=== PATIENT | female | born 1995 | race African-American/Black ===

== ENCOUNTER 2019-12-14 01:27 | Emergency (ER) | payer OTHER ==
[~2019-12-14] VITALS: Ht 167.6 cm; Wt 73.0 kg
[2019-12-14] MEDS ORDERED: ONDANSETRON 2MG/ML, 2ML IVPush ONE (01:30)
[2019-12-14] MEDS ORDERED: SODIUM CHLORIDE 0.9% 1,000ML IVBOLUS ONE (01:30)
--- NOTE | 2019-12-14 01:44 | NUR ---
pt resting on gurney, monitors applied, siderails up x2, call light within reach
[2019-12-14 01:46] LABS: BASOPHILS # (AUTO) 0.03 x10^3/uL (0-0.1); BASOPHILS % (AUTO) 1 % (0-1); EOSINOPHILS # (AUTO) 0.03 x10^3/uL (0-0.4); EOSINOPHILS % (AUTO) 1 % (1-7); LYMPHOCYTES # (AUTO) 1.75 x10^3/uL (1-3.4); LYMPHOCYTES % (AUTO) 27 % (22-44); MD NO; MEAN CORPUSCULAR HEMOGLOBIN 29.2 pg (27.0-34.8); MEAN CORPUSCULAR VOLUME 91.1 fL (80-100); MEAN PLATELET VOLUME 8.7 fL (7.4-10.4); MONOCYTES # (AUTO) 0.35 x10^3/uL (0.2-0.8); MONOCYTES % (AUTO) 5 % (2-9); NEUTROPHILS # (AUTO) 4.27 x10^3/uL (1.8-6.8); NEUTROPHILS % (AUTO) 66 % (42-75); PLATELET COUNT 215 x10^3/uL (130-400); RED BLOOD COUNT 4.72 x10^6/uL (3.82-5.3); RED CELL DISTRIBUTION WIDTH 13.2 % (9.6-15.2)
[2019-12-14 01:56] LABS: ANION GAP 6 mmol/L (5-15); CALCIUM 9.2 mg/dL (8.5-10.1); CHLORIDE 111 mmol/L (98-107); CREATININE 1.11 mg/dL (0.55-1.02)
[2019-12-14] MEDS ORDERED: ONDANSETRON 2MG/ML, 2ML ONE (01:57)
[2019-12-14 01:59] LABS: SALICYLATE LEVEL < 1.7 mg/dL (2.8-20.0)
--- NOTE | 2019-12-14 01:59 | NUR ---
PT MEDICATED PER MAR
--- NOTE | 2019-12-14 03:30 | NUR ---
PT RESTING ON GURNEY WITH EYES CLOSED, NAD, RESPIRATIONS EVEN AND UNLABORED, CALL LIGHT WITHIN REACH. WILL CONTINUE TO MONITOR
[2019-12-14 04:44] VITALS: BP 103/63
--- NOTE | 2019-12-14 04:45 | NUR ---
pt opens eyes to repeated verbal response, when this rn asked pt question, pt unable to answer and quickly closes eyes again and falls back to sleep. call light within reach, will continue to monitor
--- NOTE | 2019-12-14 05:57 | NUR ---
erp at pt's bedsdie for recheck
--- NOTE | 2019-12-14 06:11 | NUR ---
PT AWAKE AND STATED THAT SHE DOES NOT HAVE HER KEYS TO GET INTO HER APARTMENT. ASSISTED PT WITH CALLING [facility], AWAITING FOR CALL BACK FROM [facility]
--- NOTE | 2019-12-14 06:26 | NUR ---
[facility] apt security on telephone, pt to be let into her apt complex by security
== END 2019-12-14 06:33 | disposition home or self-care (01) ==
LOC: ED 04:32
DX: F10.120 Alcohol abuse with intoxication, uncomplicated (principal); R94.31 Abnormal electrocardiogram [ECG] [EKG]; Y90.0 Blood alcohol level of less than 20 mg/100 ml
CPT/HCPCS: 36415; 80048; 80307; 82040; 84703; 85025; 93005; 96374; 99284; J2405; J7030